=== PATIENT | female | born 1995 | race Caucasian/White ===

== ENCOUNTER 2018-05-28 07:04 | Day surgery (SDC) | payer OTHER ==
--- NOTE | 2018-05-27 10:24 | PREOPHP ---
DATE OF ADMISSION: 05/28/2018 HISTORY: Ms. Ce Sorto is a 23-year-old 3, para 3, desires permanent surgical sterilizati on. MEDICAL HISTORY: None. MEDICATIONS: vitamins and iron supplements. OBSTETRIC HISTORY: Vaginal deliveries x3. GYNECOLOGIC HISTORY 12, regular, 3 to 4 days. Denies any sexually transmitted disease. Sexually act baldemar with 1 partner. SOCIAL HISTORY: Denies any smoking, drugs or alcohol. FAMILY HISTORY: None. REVIEW OF SYSTEMS: All within normal except history of present illness. PHYSICAL EXAMINATION: HEENT: Within normal. LUNGS: CTA bilateral. HEART: S1, S2, regular rhythm. ABDOMEN: Soft, nontender, negative distention. EXTREMITIES: Negative edema. No calf tenderness. VAGINAL: Normal external genitalia. Cervix negative CMT, negative lesions. Adnexa negative, no mass , nontender bilateral. Fundus within normal limits. ASSESSMENT: Multiparity, desires permanent surgical sterilization. PLAN: Consent for laparoscopic bilateral tubal sterilization. Risks, benefits and alternatives expla ined. All questions were answered. Dictated By: FRANK FONSECA/JEREMI Conf#: [id number] DID#: [id number]
[~2018-05-28] VITALS: Ht 160 cm; Wt 81.3 kg
[~2018-05-28 07:04] MED LIST: CALC-649 PO; FERR27TA PO; FOLI0.4T2 PO; PREN1TAB49 PO
[2018-05-28 07:56] VITALS: BP 107/52; PULSE 80; RESP 16; Ht 160 cm; Wt 81.3 kg
--- NOTE | 2018-05-28 09:38 | NUR ---
SURGERY WAS CANCELLED, PATIENT STATED SIGNATURE ON STATE CONSENT NOT HER SIGNATURE. DC PATIENT HOME IN STABLE CONDITION IV REMOVED. DC INSTRUCTIONS GIVEN TO FOLLOW UP AT CLINIC TO GO BACK AND SIGN NEW CONSENT FORM. INSTRUCTIONS UNDERSTOOD.
== END 2018-05-28 09:36 | disposition home or self-care (01) ==
LOC: SDS 07:04
PROVIDERS: ATTEND Obstetrics & Gynecology
DX: Z30.2 Encounter for sterilization (principal); Z53.8 Procedure and treatment not carried out for other reasons
CPT/HCPCS: 84703

== ENCOUNTER 2018-10-02 05:46 | Day surgery (SDC) | payer OTHER ==
[2018-10-02] VITALS (14 sets, daily range): BP systolic 105–146; BP diastolic 50–79; PULSE 66–92; RESP 12–23; Ht 160 cm; Wt 76.9 kg
[~2018-10-02] VITALS: Ht 160 cm; Wt 76.9 kg
--- NOTE | 2018-10-02 02:33 | PREOPHP ---
DATE OF ADMISSION: 10/02/2018 HISTORY OF PRESENT ILLNESS: Ms. Ce Sorto is a 23-year-old 4, para 3, desires permanent s urgical sterilization. PAST MEDICAL HISTORY: None. MEDICATIONS: vitamins. PAST SURGICAL HISTORY: None. OBSTETRICAL HISTORY: Vaginal delivery x3, missed AB x1. GYNECOLOGIC HISTORY: 12, regular 3 to 4 days. Denies any sexually transmitted infections. Sexually active with one partner. SOCIAL HISTORY: Denies any smoking, drugs or alcohol. FAMILY HISTORY: None. REVIEW OF SYSTEMS: All within normal except history of present illness. PHYSICAL EXAMINATION: HEENT: Within normal. LUNGS: CTA bilateral. CARDIOVASCULAR: S1, S2, regular rhythm. ABDOMEN: Soft, nontender, negative distention. EXTREMITIES: Negative edema. No calf tenderness. VAGINAL: Normal external genitalia. Cervix negative CMT, negative lesions. Adnexa negative mass, n ontender bilateral. Fundus within normal limits. ASSESSMENT: Multiparity, desires permanent surgical sterilization. PLAN: Consent for a laparoscopic bilateral tubal sterilization. Risks, benefits and alternatives ex plained, including but not limited to increased risk of regret. Dictated By: FRANK FONSECA/JEREMI Conf#: [id number] DID#: [id number]
[2018-10-02] MEDS ORDERED: PROPOFOL 20 ML ONE (06:57)
[2018-10-02] MEDS ORDERED: CEFAZOLIN 1 GM INJ ONE (06:57)
[2018-10-02] MEDS ORDERED: LIDOCAINE 2% (SDV) 5 ML INJ ONE (06:57)
[2018-10-02] MEDS ORDERED: SUCCINYLCHOLINE CHLORIDE 100 MG/5 ML SYG IV ONE (06:57)
[2018-10-02] MEDS ORDERED: FENTAnyl 50 MCG/ML VIAL ONE (06:58)
[2018-10-02] MEDS ORDERED: MIDAZOLAM 1 MG/ML 2 ML INJ ONE (06:58)
[2018-10-02] MEDS ORDERED: DESFLURANE 15 MIN ONE (07:00)
--- NOTE | 2018-10-02 07:21 | PREAC ---
Date/Time of Note Date/Time of Note DATE: 10/02/18 TIME: 07:20 Anesthesia Eval and Record Evaluation Time Pre-Procedure Interview DATE: 10/02/18 TIME: 07:20 Age 23 Sex female NPO: 8 hrs Preoperative diagnosis desire for permanent sterilization Planned procedure lap BTL Past Medical History Past Medical History: None Surgery & Anesthesia Issues No known issue Meds Anticoagulation: No Beta Will within 24 hr: No Reason Beta Will not given: Pt. not on B-Will Discontinued Reported Medications Folic Acid* (Folic Acid*) 0.4 Mg Tablet, 0.4 MG PO DAILY, #1 07/26/12 Calcium Carbonate (Calcium) 1 Tab Tablet, 1 TAB PO DAILY, #1 07/26/12 Ferrous Sulfate (Iron) 1 Tab Tablet, 1 TAB PO BID 07/26/12 Vits W-Ca,Fe,Fa(<1MG) () 1 Tab Tablet, 1 TAB PO DAILY for 1 Day 07/26/12 Meds reviewed: Yes Allergies Coded Allergies: No Known Drug Allergies (Verified Allergy, Mild, 10/02/18) Allergies Reviewed: Yes Labs/Studies Labs Reviewed: Reviewed by anesthesiologist test: Negative Pre-procedure Exam Airway: Adequate mouth opening, Adequate thyromental dist Mallampati: Mallampati I Teeth: Normal Lung: Normal Heart: Normal ASA Physical Status ASA physical status: 1 Emergency: None Planned Anesthetic General/MAC: ETT Planned Pain Management Parenteral pain med, Local by surgeon Pre-operative Attestations Prior to commencing anesthesia and surgery, the patient was re-evaluated, there was verification of: *The patient's identity *The results of appropriate recent lab work and preoperative vital signs *The above evaluation not changing prior to induction *Anesthetic plan, risk benefits, alternative and complications discussed with patient/family; questions answered; patient/family understands, accepts and wishes to proceed. PAUL MCDANIELS Oct 02, 2018 07:21
[2018-10-02] MEDS ORDERED: ROCURONIUM 50 MG INJ ONE (07:36)
[2018-10-02] MEDS ORDERED: ONDANSETRON 4 MG INJ ONE (07:38)
[2018-10-02] MEDS ORDERED: FAMOTIDINE 20 MG INJ ONE (07:38)
[2018-10-02] MEDS ORDERED: METOCLOPRAMIDE 10 MG INJ ONE (07:38)
[2018-10-02] MEDS ORDERED: DEXAMETHASONE 4 MG/ML 5 ML INJ ONE (07:38)
[2018-10-02] MEDS ORDERED: GLYCOPYRROLATE 0.4 MG INJ ONE (07:42)
[2018-10-02] MEDS ORDERED: NEOSTIGMINE 3 MG/3 ML SYRINGE ONE (07:42)
[2018-10-02] MEDS ORDERED: LACTATED RINGER'S 1,000 ML IV SCH (08:00)
[2018-10-02] MEDS ORDERED: MEPERIDINE 25 MG INJ IV PRN (08:30)
[2018-10-02] MEDS ORDERED: FENTAnyl 50 MCG/ML VIAL IV PRN ×2 (08:30)
[2018-10-02] MEDS ORDERED: OXYCODONE/ACETAMINOPHEN (5/325) TAB PO PRN ×2 (08:30)
[2018-10-02] MEDS: ONDANSETRON 4 MG INJ IV PRN ×2 (08:32→10:09)
--- NOTE | 2018-10-02 08:41 | PD.PPDC ---
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
--- NOTE | 2018-10-02 08:41 | OPPN ---
Date/Time of Note Date/Time of Note DATE: 10/02/18 TIME: 08:39 Operative Report Planned Procedure Procedure date Oct 02, 2018 Procedure(s) laparoscopic bilateral tubal fulguration Performed by see signature line Risk Reduction Counselor: FRANK HERNANDEZ MD 2nd Risk Reduction Counselor none Pre-procedure diagnosis Multiparity, desires permanent surgical sterilization. [id number] Anesthesia Type: Iasgj4q general Post-Procedure Post-procedure diagnosis same Findings normal uterus tubes and ovaries Estimated Blood Loss: minimal Specimen(s) none Grafts/Implant(s) none Complication(s) none FRANK HERNANDEZ MD Oct 02, 2018 08:41
[2018-10-02] MEDS: FENTAnyl 50 MCG/ML VIAL IV PRN ×2 (08:44→08:58)
[2018-10-02] MEDS ORDERED: ESMOLOL 10 ML ONE (09:59)
--- NOTE | 2018-10-02 21:42 | OPR ---
DATE OF OPERATION: 10/02/2018 PRIMARY DIAGNOSIS: Multiparity, desires permanent surgical sterilization. POSTOPERATIVE DIAGNOSIS: Multiparity, desires permanent surgical sterilization. OPERATION PERFORMED: Laparoscopic bilateral tubal fulguration. SURGEON: Nic Wellington MD AUTO CARRIER DRIVER: None. ANESTHESIA: General. COMPLICATIONS: None. ESTIMATED BLOOD LOSS: Minimal. FINDINGS: Normal uterus, tubes and ovaries. DESCRIPTION OF PROCEDURE: After explaining the risks, benefits and alternatives, patient had consent signed in chart. The patient was taken to the operating room where general anesthesia was obtained without difficulty. The patient was then examined under anesthesia and found to have a small antever chayo uterus with normal adnexa. She was then placed in a dorsal lithotomy position, prepared and drap ed in a sterile fashion. A heavy weighted speculum was then placed in the patient's vagina and the a nterior lip of the cervix was grasped with a single tooth tenaculum. A [employer] uterine manipulator was then advanced into the uterus to provide means to manipulate the uterus. The speculum was then remov ed from the vagina. Attention was then turned to the patient's abdomen where a 5 mm skin incision wa s made in the umbilical fold. A Veress needle was carefully introduced into the peritoneal cavity at 45-degree angle while tenting the abdominal wall. Intraperitoneal placement was confirmed by use of water-filled syringe and drop in intraabdominal pressure with insufflation of CO2 gas. The trocar a nd sleeve were then advanced without difficulty into the abdomen where the intra-abdominal placement was confirmed by a laparoscope. Pneumoperitoneum was obtained with 4 liters of CO2 gas and a 5 mm tr ocar and sleeve were then advanced without difficulty into the abdomen where intra-abdominal placemen t was confirmed by laparoscope. A second skin incision was made 2 cm over the symphysis pubis in the midline. The second trocar and sleeve were then advanced under direct visualization. A survey of t he patient's pelvis revealed normal. At this point, the right fallopian tube was fulgurated at multi ple areas of the ampullary and isthmic areas with good blanching. Similarly, the left fallopian tube was fulgurated. There was no bleeding from the mesosalpinx. Good hemostasis was noted. The instru ments were then removed from the patient's abdomen and the incision was repaired with 3-0 Vicryl. Dane ROBERTSON was then removed from the patient's vagina with no bleeding noted from the cervix. The patien t tolerated procedure well. Sponge, lap and needle counts were correct. The patient was taken to re covery room in stable condition. Dictated By: NIC FONSECA/JEREMI Conf#: [id number] DID#: [id number]
== END 2018-10-02 10:32 | disposition home or self-care (01) ==
LOC: SDS 05:46
PROVIDERS: ATTEND Obstetrics & Gynecology
DX: Z30.2 Encounter for sterilization (principal)
CPT/HCPCS: 58670; 84702; 85025; 86850; 86900; 86901; J0690; J1100; J2250; J2405; J2710; J2765; J3010; Z7512; Z7610